=== PATIENT | male | born 1975 | race Caucasian/White ===

== ENCOUNTER 2018-06-12 09:53 | Emergency (ER) | payer OTHER ==
[~2018-06-12] VITALS: Ht 177.8 cm; Wt 108.9 kg
[~2018-06-12 09:53] MED LIST: BACTRIM DS 8001 TA1 PO; CLINDAMYCIN HC300 MG PO; DUONEB 3 MG/3 ML3 M1 INH; LIDEX 0.05% CRE15 GM T; MOTRIN800 MG PO; NIZORAL AD SHA120 ML T; NKHM; NYSTATIN CREAM15 GM T; PREDNICOT20 MG PO; ROBITUSSIN AC 110 ML PO; VIBRAMYCIN100 MG PO; ZITHROMAX250 MG PO
[2018-06-12 10:04] LABS: BASO # 0.1 10*3/uL (0.0-0.1); BASO % 0.5 % (0.0-1.0); EOS # 0.2 10*3/uL (0.0-0.4); EOS % 1.4 % (1.0-4.0); HEMATOCRIT 47.4 % (42.0-52.0); HEMOGLOBIN 15.4 g/dl (14.0-18.0); LYMPH # 3.4 10*3/uL (1.3-4.4); LYMPH % 32.3 % (27.0-41.0); MEAN CELL VOLUME 92.9 fl (80.0-94.0); MEAN CORPUSCULAR HGB 30.2 pg (27.0-31.0); MEAN CORPUSCULAR HGB CONC 32.5 g/dl (33.0-37.0); MEAN PLATELET VOLUME 11.5 fl (9.6-12.3); MONO # 0.7 10*3/uL (0.1-1.0); MONO % 6.1 % (3.0-9.0); NEUT # 6.3 10*3/uL (2.3-7.9); NEUT % 59.4 % (47.0-73.0); PLATELET COUNT AUTOMATED 302 10*3/uL (130-400); RED CELL DISTRI WIDTH 14.8 % (0-14.5); WHITE BLOOD COUNT 10.6 10*3/uL (4.8-10.8)
[2018-06-12 10:17] LABS: ACT PARTIAL THROMBO TIME 20.4 SECONDS (20.8-31.5)
[2018-06-12 10:19] LABS: ALBUMIN 3.6 gm/dl (3.1-4.5); ALKALINE PHOSPHATASE 113 U/L (45-117); BUN 15 mg/dl (7-24); CHLORIDE 106 mmol/L (98-107); CREATININE 1.05 mg/dL (0.70-1.30); POTASSIUM 3.9 mmol/L (3.5-5.1); SGOT/AST 11 IU/L (3-35); SGPT/ALT 22 U/L (12-78); SODIUM 138 mmol/L (136-145); TOTAL PROTEIN 7.7 gm/dL (6.4-8.2)
== END 2018-06-12 11:47 | disposition short-term general hospital (02) ==
LOC: ED 09:53
PROVIDERS: Nurse Practitioner Family
DX: S62.394B Other fracture of fourth metacarpal bone, right hand, initial encounter for open fracture (principal); S66.921A Laceration of unspecified muscle, fascia and tendon at wrist and hand level, right hand, initial encounter; R79.1 Abnormal coagulation profile; Z88.0 Allergy status to penicillin; W23.0XXA Caught, crushed, jammed, or pinched between moving objects, initial encounter; Y93.89 Activity, other specified; Y92.89 Other specified places as the place of occurrence of the external cause; Y99.8 Other external cause status